=== PATIENT | female | born 1995 | race Caucasian/White ===

== ENCOUNTER → 2021-08-05 | Outpatient (CLI) | payer OTHER | END | disposition home or self-care (01) | LOC: COVID19 17:32 | PROVIDERS: ATTEND Student in an Organized Health Care Education/Training Program | DX: Z11.52 Encounter for screening for COVID-19 (principal) ==

== ENCOUNTER 2022-08-01 09:53 | Emergency (ER) | payer OTHER ==
[~2022-08-01] VITALS: Ht 162.5 cm; Wt 90.7 kg
[2022-08-01 10:30] LABS: BILIRUBIN Negative (Negative); BLOOD Negative (Negative); CLARITY Clear (Clear); COLOR Yellow (Yellow); GLUCOSE Negative (Negative); KETONE Negative (Negative); LEUKO ESTERASE Negative (Negative); NITRITE Negative (Negative); SPECIFIC GRAVITY <= 1.005 (1.001-1.030); UROBILINOGEN 0.2 E.U./dl (0.0-1.0)
[2022-08-01 10:38] LABS: BACTERIA 2+; WBC 0-2 wbc/hpf (0-5)
== END 2022-08-01 12:18 | disposition home or self-care (01) ==
LOC: ED 09:53
PROVIDERS: Family Medicine
DX: O26.852 Spotting complicating pregnancy, second trimester (principal); Z3A.18 18 weeks gestation of pregnancy; Z88.6 Allergy status to analgesic agent